=== PATIENT | female | born 1965 | race African-American/Black ===

== ENCOUNTER 2017-08-14 01:43 | Emergency (ER) | payer OTHER ==
[2017-08-14 01:47] VITALS: BP 128/79; PULSE 78; TEMP 98.6; BMI 28.3
--- NOTE | 2017-08-14 02:32 | PDOC ---
History of Present Illness - General Chief Complaint: Psychiatric Stated Complaint: ANXIETY Time Seen by Provider: 08/14/17 02:32 - History of Present Illness Initial Comments: 52 year old female with no PMH presenting with palpitations and hand paresthesias for the past three weeks. Patient was evaluated for these issues three weeks prior and was found to have bronchitis for which she was admitted and received IV antibiotics for 2 days. She was discharged and admits that the palpitations improved but they have since returned over the past few days. She also states her hands get hot and she feels "strange". She was told during her admission that htese were related to menopausal changes but does not appreciate this diagnosis and came in for a second opinion. Admits to occasional diarrhea. Denies fevers, chills, nausea vomiting, constipation, abdominal pain, appetite issues, diaphoresis, shortness of breath, or chest pain. She admits to history of depression and anxiety but has never seen a psychiatrist. She was given cetirizine "for my anxiety" on her discharge from the facility in [place]. She is visiting family in [place]. 08/14/17 04:23 Past History - Past Medical History Allergies/Adverse Reactions: Allergies Allergy/AdvReac Type Severity Reaction Status Date / Time ketorolac [From Toradol] Allergy Hives Verified 08/14/17 03:19 Home Medications: Ambulatory Orders Hydroxyzine HCl 10 mg PO BID PRN 08/14/17 - Suicide/Smoking/Psychosocial Hx Smoking History: Never smoked Have you smoked in the past 12 months: No Information on smoking cessation initiated: No Hx Alcohol Use: No Drug/Substance Use Hx: No Review of Systems - Review of Systems Constitutional: No: Chills, Diaphoresis, Fever, Loss of Appetite HEENTM: No: See HPI, Eye Pain, Blurred Vision Respiratory: No: Cough, Shortness of Breath, SOB at Rest Cardiac (ROS): Yes: Irregular Heart Rate, Palpitations. No: Chest Pain, Lightheadedness, Syncope ABD/GI: Yes: Diarrhea. No: Constipated, Nausea : No: Burning, Dysuria, Discharge, Frequency Integumentary: No: Change in Color, Lumps, Pallor, Pruritus, Rash Neurological: Yes: Paresthesia, Tingling. No: Numbness, Weakness, Ataxia, Dizziness Psychiatric: Yes: Anxiety, Depression *Physical Exam - Vital Signs Last Vital Signs Temp Pulse Resp BP Pulse Ox 98.6 F 78 20 128/79 97 08/14/17 01:46 08/14/17 01:46 08/14/17 01:46 08/14/17 01:46 08/14/17 01:46 - Physical Exam General Appearance: Yes: Nourished, Appropriately Dressed, Other (Sleeping peacfully in her wheel chair). No: Apparent Distress HEENT: positive: EOMI, CHACHO, Normal ENT Inspection, Normal Voice Neck: positive: Trachea midline, Normal Thyroid, Supple. negative: Tender, Rigid Respiratory/Chest: positive: Lungs Clear, Normal Breath Sounds. negative: Chest Tender, Respiratory Distress Cardiovascular: positive: Regular Rhythm, Regular Rate, Edema (trace pitting edema in her bl LEs) Gastrointestinal/Abdominal: positive: Normal Bowel Sounds, Flat, Soft. negative : Tender Musculoskeletal: positive: Normal Inspection. negative: CVA Tenderness Extremity: positive: Normal Capillary Refill, Normal Inspection, Normal Range of Motion. negative: Tender Integumentary: positive: Normal Color, Dry, Warm Neurologic: positive: Fully Oriented, Alert, Normal Mood/Affect, Normal Response ED Treatment Course - LABORATORY CBC & Chemistry Diagram: 08/14/17 03:31 08/14/17 03:31 Medical Decision Making - Medical Decision Making 52 year old female with no PMH presenting with "palpitaions" and paresthesias in her hands bilaterally. Previous workup three weeks ago was unrevealing. Today 's workup is also unrevealing with WNL CBC, CMP, Cardiac profile, and EKGs (NSR , 75 BPM, no ST wave changes, normal QRS). Will DC home with follow up with [place] PCP. 08/14/17 06:13 *DC/Admit/Observation/Transfer Diagnosis at time of Disposition: Palpitations - Discharge Dispostion Disposition: HOME Condition at time of disposition: Improved Admit: No - Referrals Referrals: Romario Shelton [Primary Care Provider] - - Patient Instructions Printed Discharge Instructions: DI for Palpitations Additional Instructions: You do dnot seem to have any issues with your heart or lungs. Please follow up with your physician in three days. Stay well hydrated. Please return to the ED if you have new or worsening symptoms. - Post Discharge Activity
[2017-08-14 04:08] LABS: HEMATOCRIT 29.4 % (32.4-45.2); HEMOGLOBIN 9.5 GM/dL (10.7-15.3); MCHC 32.3 g/dl (32.0-36.0); MEAN CELL VOLUME 59.5 fl (80-96); MEAN PLT VOLUME 8.7 fl (7.5-11.1); PLATELET COUNT 193 K/MM3 (134-434); RBC 4.94 M/mm3 (3.60-5.2); RDW 21.3 % (11.6-15.6); WHITE BLOOD COUNT 3.5 K/mm3 (4.0-10.0)
[2017-08-14 04:09] LABS: ADD RBC MORPHOLOGY YES; MCH 19.2 pg (25.7-33.7)
[2017-08-14 04:41] LABS: ALBUMIN 3.5 g/dl (3.4-5.0); ALK PHOS 174 U/L (45-117); BILIRUBIN,TOTAL 0.5 mg/dL (0.2-1.0); BLOOD UREA NITROGEN 9 mg/dL (7-18); CALCIUM 7.9 mg/dL (8.5-10.1); CO2 22 mmol/L (21-32); GLUCOSE,RANDOM 115 mg/dL (74-106); SGOT/AST 54 U/L (15-37); SGPT/ALT 33 U/L (12-78); TOT PROT 9.1 g/dl (6.4-8.2)
[2017-08-14 05:05] LABS: ANION GAP 8 (8-16); CHLORIDE 113 mmol/L (98-107); POTASSIUM 4.2 mmol/L (3.5-5.1); SODIUM 143 mmol/L (136-145)
[2017-08-14 05:26] LABS: ANISOCYTOSIS 3+; TARGET CELLS 2+
--- NOTE | 2017-08-14 06:19 | PDOC ---
Attending Attestation - Resident Resident Name: Marsha Clark - ED Attending Attestation I have performed the following: I have examined & evaluated the patient, The case was reviewed & discussed with the resident, I agree w/resident's findings & plan - HPI HPI: 08/14/17 06:17 Pt comes with anxiety and atypical CP with palpitations. She is visiting her sister's home in [place] (she lives in and her doctors are there) Afebrile. - Physicial Exam PE: 08/14/17 06:18 Agree with resident exam. - Medical Decision Making 08/14/17 06:18 Labs normal. EKG NSR, nonspecific flat inferior Ts. Exam normal. Pt is feeling better in the ER
--- NOTE | 2017-08-14 14:33 | EKG ---
Test Reason : Blood Pressure : / mmHG Vent. Rate : 075 BPM Atrial Rate : 075 BPM P-R Int : 140 ms QRS Dur : 084 ms QT Int : 422 ms P-R-T Axes : 012 004 017 degrees QTc Int : 471 ms NORMAL SINUS RHYTHM LOW VOLTAGE QRS CANNOT RULE OUT ANTERIOR INFARCT , AGE UNDETERMINED ABNORMAL ECG NO PREVIOUS ECGS AVAILABLE Confirmed by MD Nir, Georgi ([id number]) on 08/14/2017 2:33:01 PM Referred By: Confirmed By:Georgi Loyola MD
== END 2017-08-14 06:27 | disposition home or self-care (01) ==
LOC: JER 01:43
DX: R00.2 Palpitations (principal)
CPT/HCPCS: 36415; 71046-TC-FY; 80053; 82550; 82553; 84484; 85025; 93005; 93010; 99282-25

== ENCOUNTER 2021-08-08 23:01 | Emergency (ER) | payer OTHER ==
[2021-08-08 23:16] VITALS: TEMP 97.8; BMI 29.2
[2021-08-09 02:22] VITALS: BP 142/92; PULSE 96
== END 2021-08-09 02:22 | disposition home or self-care (01) ==
LOC: JER 23:01
DX: N63.20 Unspecified lump in the left breast, unspecified quadrant (principal)
CPT/HCPCS: 76642-TC-LT; 99283-25

== ENCOUNTER 2022-06-29 20:52 | Observation (INO) | payer OTHER ==
[2022-06-29 21:15] VITALS: BMI 27.4
[2022-06-29 22:41] LABS: BASO % 1.1 % (0-2.0); EOS % 4.2 % (0-4.5); HEMATOCRIT 21.7 % (32.4-45.2); HEMOGLOBIN 7.3 GM/dL (10.7-15.3); LYMPH % 38.6 % (8-40); MCH 29.5 pg (25.7-33.7); MCHC 33.5 g/dl (32.0-36.0); MEAN PLT VOLUME 8.3 fl (7.5-11.1); MONO % 7.6 % (3.8-10.2); NEUT % 48.5 % (42.8-82.8); PLATELET COUNT 290 10^3/uL (134-434); RBC 2.47 M/mm3 (3.60-5.2); RDW 14.9 % (11.6-15.6); WHITE BLOOD COUNT 6.9 K/mm3 (4.0-10.0)
[2022-06-29 22:47] LABS: INR 1.38 (0.83-1.09); PROTHROMBIN TIME (PATIENT) 15.9 SEC (9.7-13.0)
[2022-06-29 23:34] LABS: ALBUMIN 1.4 g/dl (3.4-5.0); BILIRUBIN,TOTAL 0.2 mg/dL (0.2-1); BLOOD UREA NITROGEN 18.2 mg/dL (7-18); CALCIUM 8.3 mg/dL (8.5-10.1); CREATININE 1.5 mg/dL (0.55-1.3); TOT PROT 6.4 g/dl (6.4-8.2)
[2022-06-30] MEDS ORDERED: ACETAMINOPHEN 325 MG TABLET (FP) PO PRN (06:24)
[2022-06-30] MEDS ORDERED: LOPERAMIDE HCL 2 MG CAPSULE PO PRN (06:32)
[2022-06-30] MEDS ORDERED: ONDANSETRON *ODT* 4 MG TABLET SL PRN (06:35)
[2022-06-30] MEDS ORDERED: SIMETHICONE 80 MG TAB.CHEW (FP) PO PRN (06:35)
[2022-06-30] MEDS: ENOXAPARIN NA (PORCINE) 80 MG/0.8 ML DISP.SYRIN SQ SCH ×3 (07:00→18:15)
[2022-06-30] MEDS: LIDOCAINE 5% TOPICAL PATCH TP SCH (07:00)
[2022-06-30] MEDS ORDERED: ENOXAPARIN NA (PORCINE) 80 MG/0.8 ML DISP.SYRIN SQ SCH (07:00)
[2022-06-30] MEDS: NYSTATIN POWDER 100,000 UNITS/GM - 15 GM TOPICAL POWDER TP SCH (10:00)
[2022-06-30] MEDS: MULTIVITAMINS (DAILY MVI) TABLET (FP) PO SCH (10:00)
[2022-06-30] MEDS: ASPIRIN 81 MG CHEWABLE TABLETS PO SCH (10:00)
[2022-06-30] MEDS: NIFEdipine E.R. 30 MG TABLET PO SCH (10:00)
[2022-06-30] MEDS: MAGNESIUM OXIDE 400 MG TABLET (FP) PO SCH ×2 (10:00→21:17)
[2022-06-30] MEDS: levETIRAcetam 250 MG TABLET PO SCH ×3 (10:00→21:17)
[2022-06-30] MEDS: PANTOPRAZOLE 40 MG TABLET PO SCH (10:00)
[2022-06-30 12:35] LABS: EOS % 3.9 % (0-4.5); HEMATOCRIT 28.6 % (32.4-45.2); LYMPH % 27.6 % (8-40); MCH 30.4 pg (25.7-33.7); MCHC 35.1 g/dl (32.0-36.0); MEAN CELL VOLUME 86.8 fl (80-96); MEAN PLT VOLUME 8.9 fl (7.5-11.1); MONO % 5.8 % (3.8-10.2); NEUT % 61.7 % (42.8-82.8); PLATELET COUNT 273 10^3/uL (134-434); RBC 3.29 M/mm3 (3.60-5.2); RDW 14.6 % (11.6-15.6); WHITE BLOOD COUNT 6.5 K/mm3 (4.0-10.0)
[2022-06-30 12:55] LABS: CALCIUM 8.8 mg/dL (8.5-10.1)
[2022-06-30 12:56] LABS: BLOOD UREA NITROGEN 19.2 mg/dL (7-18); MAGNESIUM 1.9 mg/dL (1.8-2.4)
[2022-06-30 12:59] LABS: CREATININE 1.4 mg/dL (0.55-1.3); PHOSPHOROUS 4.7 mg/dL (2.5-4.9)
[2022-06-30] MEDS: MELATONIN 1 MG TABLET PO SCH (21:17)
[2022-06-30] MEDS: LIDOCAINE PATCH REMOVAL MC SCH (22:08)
[2022-06-30] MEDS: hydrOXYzine PAMOATE 25 MG CAPSULE (FP) PO SCH (22:15)
[2022-07-01] MEDS: NYSTATIN POWDER 100,000 UNITS/GM - 15 GM TOPICAL POWDER TP SCH ×3 (03:41→21:09)
[2022-07-01] MEDS: ENOXAPARIN NA (PORCINE) 80 MG/0.8 ML DISP.SYRIN SQ SCH ×2 (06:09→18:19)
[2022-07-01] MEDS: ASPIRIN 81 MG CHEWABLE TABLETS PO SCH (11:26)
[2022-07-01] MEDS: NIFEdipine E.R. 30 MG TABLET PO SCH (11:27)
[2022-07-01] MEDS: LIDOCAINE 5% TOPICAL PATCH TP SCH (11:27)
[2022-07-01] MEDS: PANTOPRAZOLE 40 MG TABLET PO SCH (11:27)
[2022-07-01] MEDS: levETIRAcetam 250 MG TABLET PO SCH ×2 (11:27→21:08)
[2022-07-01] MEDS: MAGNESIUM OXIDE 400 MG TABLET (FP) PO SCH ×2 (11:27→21:08)
[2022-07-01] MEDS: MULTIVITAMINS (DAILY MVI) TABLET (FP) PO SCH (11:28)
[2022-07-01 15:10] VITALS: RESP 18
[2022-07-01] MEDS: MELATONIN 1 MG TABLET PO SCH (21:08)
[2022-07-01] MEDS: hydrOXYzine PAMOATE 25 MG CAPSULE (FP) PO SCH (21:08)
[2022-07-01] MEDS: LIDOCAINE PATCH REMOVAL MC SCH (21:26)
[2022-07-02 09:45] LABS: BASO % 1.3 % (0-2.0); HEMATOCRIT 28.3 % (32.4-45.2); HEMOGLOBIN 9.8 GM/dL (10.7-15.3); LYMPH % 41.2 % (8-40); MCH 29.9 pg (25.7-33.7); MCHC 34.6 g/dl (32.0-36.0); MEAN CELL VOLUME 86.5 fl (80-96); MEAN PLT VOLUME 8.7 fl (7.5-11.1); MONO % 9.1 % (3.8-10.2); NEUT % 42.4 % (42.8-82.8); PLATELET COUNT 280 10^3/uL (134-434); RBC 3.27 M/mm3 (3.60-5.2); RDW 14.9 % (11.6-15.6); WHITE BLOOD COUNT 5.6 K/mm3 (4.0-10.0)
[2022-07-02] MEDS ORDERED: APIXABAN 5 MG TABLET PO SCH (10:00)
[2022-07-02] MEDS: levETIRAcetam 250 MG TABLET PO SCH (10:35)
[2022-07-02] MEDS: ASPIRIN 81 MG CHEWABLE TABLETS PO SCH (10:35)
[2022-07-02] MEDS: PANTOPRAZOLE 40 MG TABLET PO SCH (10:35)
[2022-07-02] MEDS: MULTIVITAMINS (DAILY MVI) TABLET (FP) PO SCH (10:36)
[2022-07-02] MEDS: NYSTATIN POWDER 100,000 UNITS/GM - 15 GM TOPICAL POWDER TP SCH (10:37)
[2022-07-02] MEDS: LIDOCAINE 5% TOPICAL PATCH TP SCH (10:37)
[2022-07-02] MEDS: MAGNESIUM OXIDE 400 MG TABLET (FP) PO SCH (10:37)
[2022-07-02] MEDS ORDERED: TAMSULOSIN HCL 0.4 MG CAP PO ONE (11:07)
[2022-07-02] MEDS: NIFEdipine E.R. 30 MG TABLET PO SCH (11:08)
[2022-07-02] MEDS ORDERED: CEFTRIAXONE 1 GM in DEXTROSE 5%-WATER - 50 ML IVPB ONE (14:00)
[2022-07-02 18:23] VITALS: BP 92/66; PULSE 64; TEMP 97.8
[2022-07-03] MEDS ORDERED: TAMSULOSIN HCL 0.4 MG CAP PO SCH (08:30)
== END 2022-07-02 18:32 ==
LOC: JER 20:52 → JERBED 06-30 02:06 → J5S 06-30 09:37
PROVIDERS: ADMIT Internal Medicine; ATTEND Internal Medicine
PROC: 30233N1 Transfusion of Nonautologous Red Blood Cells into Peripheral Vein, Percutaneous Approach (ICD-10-PCS; principal; 2022-06-30)
PROC: 3E03329 Introduction of Other Anti-infective into Peripheral Vein, Percutaneous Approach (ICD-10-PCS; 2022-06-30)
PROC: 3E023GC Introduction of Other Therapeutic Substance into Muscle, Percutaneous Approach (ICD-10-PCS; 2022-06-30)
DX: D64.9 Anemia, unspecified (principal); Z86.73 Personal history of transient ischemic attack (TIA), and cerebral infarction without residual deficits; Z88.8 Allergy status to other drugs, medicaments and biological substances; Z85.3 Personal history of malignant neoplasm of breast
CPT/HCPCS: 36415; 36430; 72170-TC-FY; 73521-TC-FY; 80048; 80053; 83735; 84100; 85025; 85610; 85730; 86850; 86900; 86901; 86922; 87086; 87186; 96365; 96372; 97161-GP; 99285-25; C9803-CS; G0378; P9058; U0003; U0005

== ENCOUNTER 2022-07-27 13:37 | Inpatient (IN) | payer OTHER ==
[2022-07-27] MEDS ORDERED: MAG HYDROX/AL HYDROX/SIMETH 30 ML UNIT-DOSE CUP PO ONE (14:54)
[2022-07-27] MEDS ORDERED: TRIMETHOBENZAMIDE HCL 200MG/2ML INJ IM ONE ×2 (14:54→15:03)
[2022-07-27] MEDS ORDERED: ACETAMINOPHEN 325 MG TABLET (FP) PO ONE (14:54)
[2022-07-27 15:03] LABS: BASO % 0.5 % (0-2.0); EOS % 0.6 % (0-4.5); HEMATOCRIT 27.3 % (32.4-45.2); HEMOGLOBIN 9.2 GM/dL (10.7-15.3); LYMPH % 17.9 % (8-40); MCH 29.2 pg (25.7-33.7); MCHC 33.8 g/dl (32.0-36.0); MEAN CELL VOLUME 86.5 fl (80-96); MONO % 4.1 % (3.8-10.2); NEUT % 76.9 % (42.8-82.8); PLATELET COUNT 352 10^3/uL (134-434); RBC 3.16 M/mm3 (3.60-5.2); RDW 15.3 % (11.6-15.6); WHITE BLOOD COUNT 11.3 K/mm3 (4.0-10.0)
[2022-07-27] MEDS ORDERED: ACETAMINOPHEN 325 MG TABLET (FP) ONE (15:03)
[2022-07-27] MEDS ORDERED: MAG HYDROX/AL HYDROX/SIMETH 30 ML UNIT-DOSE CUP ONE (15:03)
[2022-07-27 15:22] LABS: CHLORIDE 117 mmol/L (98-107); SODIUM 144 mmol/L (136-145)
[2022-07-27 15:25] LABS: ALBUMIN 1.2 g/dl (3.4-5.0); BLOOD UREA NITROGEN 3.2 mg/dL (7-18); CALCIUM 7.3 mg/dL (8.5-10.1); CO2 16 mmol/L (21-32); MAGNESIUM 1.3 mg/dL (1.8-2.4)
[2022-07-27 15:26] LABS: GLUCOSE,RANDOM 101 mg/dL (74-106)
[2022-07-27 15:28] LABS: SGPT/ALT 21 U/L (13-61)
[2022-07-27 15:29] LABS: SGOT/AST 59 U/L (15-37)
[2022-07-27 15:30] LABS: BILIRUBIN,TOTAL 1.8 mg/dL (0.2-1); TOT PROT 6.3 g/dl (6.4-8.2)
[2022-07-27 15:31] LABS: ALK PHOS 337 U/L (45-117)
[2022-07-27 16:36] LABS: ANION GAP 11 MMOL/L (8-16); POTASSIUM 2.9 mmol/L (3.5-5.1)
[2022-07-27] MEDS ORDERED: MAGNESIUM 1GM/D5W - 1 GM/100 ML IVPB IVPB ONE (17:04)
[2022-07-27] MEDS ORDERED: KCL 10 MEQ IVPB 10 MEQ/100 ML INFUS.BAG IVPB ONE (17:05)
[2022-07-27 18:36] LABS: CHLORIDE 118 mmol/L (98-107); SODIUM 146 mmol/L (136-145)
[2022-07-27] MEDS: KCL 10 MEQ IVPB 10 MEQ/100 ML INFUS.BAG IVPB SCH ×3 (18:36→21:18)
[2022-07-27 18:38] LABS: ALBUMIN 1.2 g/dl (3.4-5.0); GLUCOSE,RANDOM 95 mg/dL (74-106)
[2022-07-27 18:39] LABS: CO2 20 mmol/L (21-32); MAGNESIUM 1.2 mg/dL (1.8-2.4)
[2022-07-27 18:41] LABS: CREATININE 1.1 mg/dL (0.55-1.3); SGOT/AST 52 U/L (15-37); SGPT/ALT 20 U/L (13-61)
[2022-07-27 18:43] LABS: BILIRUBIN,TOTAL 1.2 mg/dL (0.2-1)
[2022-07-27 18:44] LABS: ALK PHOS 333 U/L (45-117)
[2022-07-27 18:46] LABS: ANION GAP 8 MMOL/L (8-16); CALCIUM 6.8 mg/dL (8.5-10.1); POTASSIUM 2.5 mmol/L (3.5-5.1)
[2022-07-27] MEDS ORDERED: KCL 10 MEQ IVPB 20 MEQ/200 ML INFUS.BAG IVPB ONE (19:08)
[2022-07-27] MEDS ORDERED: hydrOXYzine HCL 10 MG/5 ML LIQUID BULK BOTTLE PO PRN (20:03)
[2022-07-27] MEDS ORDERED: CEFTRIAXONE 1 GM/50 ML BAG ONE (21:19)
[2022-07-27] MEDS ORDERED: APIXABAN 5 MG TABLET ONE (21:19)
[2022-07-27] MEDS ORDERED: MAGNESIUM OXIDE 400 MG TABLET (FP) ONE (21:19)
[2022-07-27] MEDS ORDERED: levETIRAcetam 500 MG TABLET (FP) PO ONE (21:19)
[2022-07-27] MEDS: CEFTRIAXONE 1 GM in DEXTROSE 5%-WATER - 50 ML IVPB SCH (21:25)
[2022-07-27] MEDS: MAGNESIUM OXIDE 400 MG TABLET (FP) PO SCH (21:28)
[2022-07-27] MEDS: levETIRAcetam 500 MG TABLET (FP) PO SCH (21:28)
[2022-07-27] MEDS: APIXABAN 5 MG TABLET PO SCH (21:28)
[2022-07-27] MEDS ORDERED: levETIRAcetam 500 MG/5 ML INJECTION VIAL IVPB ONE (23:30)
[2022-07-28 04:33] VITALS: BMI 22.8
[2022-07-28] MEDS: TAMSULOSIN HCL 0.4 MG CAP PO SCH (08:09)
[2022-07-28] MEDS: POTASSIUM CHLORIDE ORAL LIQUID 20 MEQ/15 ML PO SCH ×3 (08:09→22:16)
[2022-07-28] MEDS: levETIRAcetam 500 MG TABLET (FP) PO SCH ×2 (10:20→22:17)
[2022-07-28] MEDS: NIFEdipine E.R. 30 MG TABLET PO SCH (10:21)
[2022-07-28] MEDS: MAGNESIUM OXIDE 400 MG TABLET (FP) PO SCH (10:21)
[2022-07-28] MEDS: APIXABAN 5 MG TABLET PO SCH ×2 (10:21→22:17)
[2022-07-28] MEDS: CEFTRIAXONE 1 GM in DEXTROSE 5%-WATER - 50 ML IVPB SCH (10:22)
[2022-07-28] MEDS ORDERED: MAGNESIUM SULF 50% (8.12 MEQ/2 ML-1 GM VIAL) IVPB ONE (14:00)
[2022-07-28] MEDS: D5-1/2NS+20 MEQ KCL - 20 MEQ/1,000 ML INFUS.BAG IV SCH (17:14)
[2022-07-28 18:17] LABS: EPI CELLS 4 /uL (0-25.1); HYALINE CASTS 2 /uL (0-3.1); PH,URINE 5.5 (5.0-8.0); URINE APPEARANCE CLOUDY; URINE BACTERIA 612 /uL (0-1359); URINE BILIRUBIN NEGATIVE (NEGATIVE); URINE COLOR DK YELLOW; URINE GLUCOSE (UA) NEGATIVE (NEGATIVE); URINE KETONE NEGATIVE (NEGATIVE); URINE LEUK ESTERASE 3+ (NEGATIVE); URINE NITRITE NEGATIVE (NEGATIVE); URINE PROTEIN 1+ (NEGATIVE); URINE RBC 17 /uL (0-23.9); URINE UROBILINOGEN 0.2 mg/dL (0.2-1.0); URINE WBC 918 /uL (0-25.8)
[2022-07-28 18:51] LABS: YEAST FEW (NEGATIVE)
[2022-07-28 20:16] LABS: BASO % 0.6 % (0-2.0); EOS % 1.5 % (0-4.5); HEMATOCRIT 22.2 % (32.4-45.2); HEMOGLOBIN 7.3 GM/dL (10.7-15.3); LYMPH % 16.4 % (8-40); MCH 28.8 pg (25.7-33.7); MCHC 33.2 g/dl (32.0-36.0); MEAN CELL VOLUME 86.8 fl (80-96); MEAN PLT VOLUME 8.8 fl (7.5-11.1); MONO % 6.4 % (3.8-10.2); NEUT % 75.1 % (42.8-82.8); PLATELET COUNT 280 10^3/uL (134-434); RBC 2.55 M/mm3 (3.60-5.2); RDW 15.6 % (11.6-15.6); WHITE BLOOD COUNT 12.1 K/mm3 (4.0-10.0)
[2022-07-28 20:35] LABS: CHLORIDE 121 mmol/L (98-107); SODIUM 147 mmol/L (136-145)
[2022-07-28 20:37] LABS: CO2 17 mmol/L (21-32)
[2022-07-28 20:44] LABS: ANION GAP 9 MMOL/L (8-16); POTASSIUM 2.9 mmol/L (3.5-5.1)
[2022-07-28] MEDS: KCL 10 MEQ IVPB 10 MEQ/100 ML INFUS.BAG IVPB SCH (22:16)
[2022-07-28] MEDS ORDERED: levETIRAcetam 500 MG/5 ML INJECTION VIAL IVPB ONE (22:18)
[2022-07-29] MEDS: KCL 10 MEQ IVPB 10 MEQ/100 ML INFUS.BAG IVPB SCH ×4 (00:09→13:11)
[2022-07-29] MEDS: D5-1/2NS+20 MEQ KCL - 20 MEQ/1,000 ML INFUS.BAG IV SCH ×2 (06:41→11:31)
[2022-07-29] MEDS: TAMSULOSIN HCL 0.4 MG CAP PO SCH (08:48)
[2022-07-29] MEDS: APIXABAN 5 MG TABLET PO SCH ×2 (09:39→22:00)
[2022-07-29] MEDS: POTASSIUM CHLORIDE ORAL LIQUID 20 MEQ/15 ML PO SCH ×2 (09:39→22:00)
[2022-07-29] MEDS: NIFEdipine E.R. 30 MG TABLET PO SCH (09:39)
[2022-07-29] MEDS ORDERED: IRON SUCROSE INJECTION 200 MG in SODIUM CHLORIDE 90 ML IVPB ONE (10:04)
[2022-07-29 10:56] LABS: BLOOD UREA NITROGEN 4.4 mg/dL (7-18); MAGNESIUM 1.7 mg/dL (1.8-2.4)
[2022-07-29 10:59] LABS: CREATININE 0.8 mg/dL (0.55-1.3)
[2022-07-29] MEDS ORDERED: MAGNESIUM SULFATE IN WATER 2 GM/50 ML IVPB IVPB ONE (11:31)
[2022-07-29] MEDS: PIPERACILLIN/TAZOB 3.375 GM 3.375 GM in DEXTROSE 5%-WATER - 50 ML IVPB SCH ×2 (12:24→17:18)
[2022-07-29 13:21] LABS: ALBUMIN 1.1 g/dl (3.4-5.0)
[2022-07-29 13:23] LABS: BILIRUBIN,DIRECT 0.4 mg/dL (0.0-0.2)
[2022-07-29 13:25] LABS: TOT PROT 5.2 g/dl (6.4-8.2)
[2022-07-29 13:26] LABS: BILIRUBIN,TOTAL 0.6 mg/dL (0.2-1)
[2022-07-29 14:51] VITALS: RESP 20
[2022-07-29] MEDS ORDERED: PIPERACILLIN/TAZOB 3.375 GM 3.375 GM in DEXTROSE 5%-WATER - 50 ML IVPB SCH (18:00)
[2022-07-29] MEDS: TRIMETHOBENZAMIDE HCL 200MG/2ML INJ IM PRN (22:28)
[2022-07-30] MEDS: D5-1/2NS+20 MEQ KCL - 20 MEQ/1,000 ML INFUS.BAG IV SCH ×2 (02:37→12:50)
[2022-07-30] MEDS: PIPERACILLIN/TAZOB 3.375 GM 3.375 GM in DEXTROSE 5%-WATER - 50 ML IVPB SCH (02:38)
[2022-07-30 06:50] LABS: HEMATOCRIT 18.7 % (32.4-45.2); MCH 30.5 pg (25.7-33.7); MCHC 35.7 g/dl (32.0-36.0); MEAN CELL VOLUME 85.5 fl (80-96); MEAN PLT VOLUME 8.5 fl (7.5-11.1); PLATELET COUNT 236 10^3/uL (134-434); RBC 2.19 M/mm3 (3.60-5.2); RDW 15.4 % (11.6-15.6); WHITE BLOOD COUNT 7.6 K/mm3 (4.0-10.0)
[2022-07-30 07:12] LABS: CALCIUM 7.5 mg/dL (8.5-10.1); HEMOGLOBIN 6.7 GM/dL (10.7-15.3)
[2022-07-30 07:13] LABS: BLOOD UREA NITROGEN 3.6 mg/dL (7-18)
[2022-07-30 07:16] LABS: CREATININE 0.8 mg/dL (0.55-1.3)
[2022-07-30] MEDS: TAMSULOSIN HCL 0.4 MG CAP PO SCH (08:03)
[2022-07-30] MEDS: APIXABAN 5 MG TABLET PO SCH (09:11)
[2022-07-30] MEDS: NIFEdipine E.R. 30 MG TABLET PO SCH (09:12)
[2022-07-30] MEDS: POTASSIUM CHLORIDE ORAL LIQUID 20 MEQ/15 ML PO SCH (09:12)
[2022-07-30] MEDS: levETIRAcetam 500 MG TABLET (FP) PO SCH (09:12)
[2022-07-30 10:32] LABS: BILIRUBIN,DIRECT 0.4 mg/dL (0.0-0.2)
[2022-07-30 10:34] LABS: BILIRUBIN,TOTAL 0.8 mg/dL (0.2-1)
[2022-07-30] MEDS: KCL 10 MEQ IVPB 10 MEQ/100 ML INFUS.BAG IVPB SCH ×3 (11:44→15:36)
[2022-07-30] MEDS ORDERED: levETIRAcetam 500 MG/5 ML INJECTION VIAL IVPB SCH (13:30)
[2022-07-30] MEDS: TRIMETHOBENZAMIDE HCL 200MG/2ML INJ IM PRN (20:41)
[2022-07-30 20:46] VITALS: BP 145/88; PULSE 92; TEMP 99
== END 2022-07-30 08:50 | disposition short-term general hospital (02) | DRG 446 ==
LOC: JER 13:37 → JERBED 19:02 → J4W 21:29
PROVIDERS: ADMIT Internal Medicine; ATTEND Internal Medicine
PROC: 30233N1 Transfusion of Nonautologous Red Blood Cells into Peripheral Vein, Percutaneous Approach (ICD-10-PCS; principal; 2022-07-30)
DX: K80.20 Calculus of gallbladder without cholecystitis without obstruction (principal); K80.50 Calculus of bile duct without cholangitis or cholecystitis without obstruction; R19.7 Diarrhea, unspecified; E87.6 Hypokalemia; E83.42 Hypomagnesemia; D64.9 Anemia, unspecified; C50.919 Malignant neoplasm of unspecified site of unspecified female breast
CPT/HCPCS: 36415; 36430; 71045-TC-FY; 74176-TC; 74181-TC; 76705-TC; 80048; 80053; 80076; 81003; 82728; 82962; 83540; 83550; 83735; 84484; 85025; 85027; 86140; 86850; 86900; 86901; 86922; 87040; 87077; 87086; 87186; 93005; 93010; 93970-TC; 99285-25; C9803-CS; J1756; P9058; U0003; U0005